=== PATIENT | male | born 1980 | race Caucasian/White ===

== ENCOUNTER 2019-10-01 12:37 | Outpatient (CLI) | payer MEDICAID, SELFPAY ==
[2019-10-01 13:24] VITALS: BP 106/68; PULSE 74; RESP 16; TEMP 37.3; O2SAT 99
--- NOTE | 2019-10-01 13:28 | PDOC.PAIN ---
Pain Clinic Procedure Note Procedure Note Procedure Note: PROCEDURE: TRIGGER POINT INJECTION PRE-OPERATIVE DIAGNOSIS: MYOFASCIAL PAIN POST-OPERATIVE DIAGNOSIS: SAME ABOVE Patient complains of persistent bilateral trapezius muscle pain. He was evaluated by Ms Fabiola APRN from pain clinic and referred for trigger point injections for symptomatic relief. Of note, patient has a history of cerebral palsy with spastic diplegia. Mr Avila is greeted by our RN who verified patient's name and . Patient is interviewed and medical record reviewed. There were no medical, pharmacological, radiographic or other structural contra-indications to attempting bialteral trapezius trigger point injections. Risks and potential sarina effects were discussed. The potential benefit of the procedure was reviewed with Mr Avila. His voiced concerns and questions were addressed. After obtaining informed consent, patient consent form signed. Standard time out procedure was performend. Patient was placed in seated position on the examination table. The entry point for entering/approaching bilateral trapezius muscle was marked. The skin was thoroughly prepared with chlorhexadine preparation. Next, using a 25 gauge 3.5'' needle, I entered the skin using medial to latral approach. Aspiration revealed no blood or other fluids. Next, point anesthesia was obtained by a 50:50 mixture of 1% lidocaine and 0.5% Bupivocaine. Multiple passes through the muscles were completed which resulted in muscle twitching. 5cc of 1% lidocaine and 5cc of 0.5% Bupivocaine was used. Follow up and discharge instructions were provided to patient at the end of procedure. patient tolerated procedure well. He reports pre-procedure pain of 6 out 10 and post-procedure pain of 4 of 10. I personally performed the entire procedure. Vania Zuniga MD Pain Management
[2019-10-01] MEDS: Bupivacaine 0.5% Pres-Free 10 ML VIAL (13:55)
== END 2019-10-01 12:57 ==
PROVIDERS: PCP Physician Assistant; Visit Provider Internal Medicine
DX: M79.18 Myalgia, other site (principal)
CPT/HCPCS: 20552

== ENCOUNTER 2019-11-14 00:54 | Outpatient (CLI) | payer MEDICAID, SELFPAY ==
--- NOTE | 2019-11-14 | DI.US_ITS ---
EXAM: CERVICAL MYOFASCIAL PAIN SYNDROME, TRAPEZIUS MUSCLE SPASM COMPARISON: No exams were available for comparison TECHNIQUE: Ultrasound performed using standard protocol. FINDINGS: Sonography was provided for Dr. Dillon during the performance of a bilateral trapezius trigger point i njection. Please refer to the procedure report for complete details. DATA REPOSITORY:
[2019-11-14 13:50] VITALS: BP 111/75; PULSE 83; RESP 17; TEMP 37; O2SAT 98
[2019-11-14] MEDS: methylPREDNISolone ACETATE 40 MG/ML VIAL IJ (14:31)
[2019-11-14] MEDS: Lidocaine 1% Pres-Free 5 ML VIAL (14:31)
[2019-11-14 14:33] VITALS: PULSE 81; O2SAT 99
--- NOTE | 2019-11-14 14:43 | PDOC.PAIN_ITS ---
Pain Clinic Procedure Note Procedure Note Procedure Note: ULTRASOUND GUIDED bilateral trapezius muscle trigger point INJECTIONS Pre-Procedural Evaluation: TIEN HENDERSON has been referred to the [facility] for an Ultrasound Guided [right/left/bilateral trapezius muslce trigger point i njections for a chief complaint of muscle pain. DX: Muscle pain Pre-procedure Pain Score: 6/10 Patient was interviewed and the medical record reviewed. There were no medical, pharmacologic, radiographic, or other structural contraindications to preforming an ultrasound guided injection. Risks and expected side effects as well as potential benefits of the procedure were reviewed. The patient consent form was signed and witnessed. Standard time-out procedure was performed. The use of direct ultrasound visualization of the needle (rather than a non- guided injection) was required to increase patient safety by excluding inadvertent intramuscular, intratendinous, or intraneural needle placement and minimizing bleeding by avoiding osteochondral or vascular injury from the needle. Additionally, the increased accuracy of placement may increase clinical effectiveness and will allow higher diagnostic specificity when evaluating effectiveness of this injection. Procedure Description: The patient was placed in the PRONE position and automated blood pressure cuff and pulse oximeter applied for monitoring during the procedure and recorded in the medical record. Pre-injection ultrasound scanning of the area of interest was performed using linear transducer, identifying relevant anatomy, landmarks, and neurovascular structures allowing for optimal needle path. The site was then prepared in the usual sterile fashion, using thorough Chlorhexadine preparation of the skin and sterile draping. The same ultrasound transducer was then passed into the sterile field using sterile probe cover and sterile ultrasound gel. The injection target was again visualized. Skin and subcutaneous tissues were anesthetized with 2 mL of 1% Lidocaine. A 21 guage Pajunk US needle inch needle was placed under live ultrasound guidance, using an in-plane approach, to the target area. After visualization of the needle tip at the target area, a mixture of 1 mL Depomedrol (40 mg/cc) and 4 mL 1% Lidocaine, totaling 5 mL of injectate was delivered after negative aspiration for blood. Ultrasound images were captured and stored for documentation purposes. Post-procedure Pain Score:0/10 Vital signs were stable throughout the procedure and were as recorded in the docflowsheet by the nursing staff. Follow up plans and appointments were discussed with the patient.Post procedure instruction was given as documented in nursing documentation and having met discharge criteria, they were discharged from the [facility]. COMMENTS: He will complete stretching of this area to help his pain.
== END 2019-11-14 01:14 ==
PROVIDERS: PCP Physician Assistant; Visit Provider Preventive Medicine Occupational Medicine
DX: M79.18 Myalgia, other site (principal)
CPT/HCPCS: 20552; 76942; J1030

== ENCOUNTER 2019-12-10 11:44 | Outpatient (REF) | payer MEDICAID, SELFPAY ==
[2019-12-10 19:01] LABS: Abs Immature Grans 0.02 10^3/uL (0.0-0.06); Absolute Basophil Count 0.04 10^3/uL (0.0-0.2); Absolute Neutrophil Count 4.06 10^3/uL (1.2-6.7); Basophils % 0.6; Eosinophils % 1.6; HCT 44.3 % (40.0-50.0); HGB 15.3 g/dL (13.5-17.5); Immature Grans % 0.3; Lymphocytes % 24.1; MCH 30.6 pg (27.0-33.0); MCHC 34.5 % (32.0-36.0); MCV 88.6 fL (80-95); MPV 9.9 fL (8.0-11.0); Neutrophils % 65.4; Platelet Count 239 10^3/uL (130-400); RDW 12.1 % (11.8-14.1); RDW-SD 39.5 fL; WBC 6.22 10^3/uL (4.4-10.8)
[2019-12-10 19:45] LABS: ALT 73 U/L (16-63); AST 31 U/L (15-37); Albumin 4.2 g/dL (3.4-5.0); Alkaline Phosphatase 240 U/L (46-116); Anion Gap 9.1 mmol/L (3-11); BUN 16 mg/dL (7-18); Bilirubin, Total 0.5 mg/dL (0.2-1.0); CO2 29.9 mmol/L (21.0-32.0); CREATININE 1.16 mg/dL (0.70-1.30); Calcium 9.3 mg/dL (8.5-10.1); Calculated LDL 141 mg/dL (<100); Chloride 104 mmol/L (98-107); Cholesterol 197 mg/dL (<200); Glucose 90 mg/dL (74-106); HDL Cholesterol 36 mg/dL (40-60); Potassium 4.5 mmol/L (3.5-5.1); Sodium 143 mmol/L (136-145); TSH (W/Ref FT4) 0.88 uIU/mL (0.36-3.74); Triglyceride 100 mg/dL (<150)
== END 2019-12-10 12:04 ==
LOC: NCHCN 11:44
PROVIDERS: PCP Physician Assistant; Visit Provider Physician Assistant
DX: Z00.00 Encounter for general adult medical examination without abnormal findings (principal); E78.5 Hyperlipidemia, unspecified
CPT/HCPCS: 80053; 80061; 84443; 85025

== ENCOUNTER 2023-08-31 16:30 | Outpatient (REF) | payer MEDICAID, SELFPAY ==
[2023-08-31 19:34] LABS: Absolute Basophil Count 0.03 10^3/uL (0.0-0.2); Absolute Eosinophil Count 0.13 10^3/uL (0.0-0.7); Absolute Lymphocyte Count 1.48 10^3/uL (1.2-3.4); Absolute Monocyte Count 0.37 10^3/uL (0.1-0.8); Absolute Neutrophil Count 2.81 10^3/uL (1.2-6.7); Basophils % 0.6; Eosinophils % 2.7; HCT 42.9 % (40.0-50.0); HGB 15.2 g/dL (13.5-17.5); Lymphocytes % 30.7; MCHC 35.4 % (32.0-36.0); MCV 88 fL (80-95); MPV 10.1 fL (8.0-11.0); Monocytes % 7.7; Neutrophils % 58.3; Platelet Count 226 10^3/uL (130-400); RDW 12.2 % (11.8-14.1); RDW-SD 39.5 fL; WBC 4.82 10^3/uL (4.4-10.8)
[2023-08-31 19:44] LABS: Iron 122 ug/dL (65-175); Total Iron Binding Capacity 271 ug/dL (250-450); Transferrin Sat 45 % (20-55)
[2023-08-31 19:56] LABS: ALT 35 U/L (16-63); AST 22 U/L (15-37); Albumin 4.2 g/dL (3.4-5.0); Alkaline Phosphatase 113 U/L (46-116); Anion Gap 7.5 mmol/L (3-11); BUN 16 mg/dL (7-18); Bilirubin, Total 0.7 mg/dL (0.2-1.0); CO2 27.5 mmol/L (21.0-32.0); Calcium 8.8 mg/dL (8.5-10.1); Calculated LDL 137 mg/dL (<100); Chloride 106 mmol/L (98-107); Cholesterol 201 mg/dL (<200); Estimated GFR 95.77 (mL/min/1.73m2); Ferritin 143 ng/mL (26-388); Glucose 97 mg/dL (74-106); HDL Cholesterol 41 mg/dL (40-60); Potassium 4.4 mmol/L (3.5-5.1); Sodium 141 mmol/L (136-145); Total Protein 7.8 g/dL (6.4-8.2); Triglyceride 119 mg/dL (<150)
[2023-09-01 19:38] LABS: HBs Antibody, Quant <3.1 mIU/mL (See Note); Hepatitis B Surface Ab Negative (See Note)
[2023-09-01 19:48] LABS: Hepatitis B Surface Ag Negative (Negative)
[2023-09-01 20:18] LABS: HIV-1/2 Ag & Ab Screen Negative (Negative)
[2023-09-01 20:22] LABS: Hepatitis C Ab w Rflx HCV PCR Negative (Negative)
== END 2023-08-31 16:31 | disposition home or self-care (01) ==
LOC: NCHCN 16:30
PROVIDERS: PCP Physician Assistant; Visit Provider Physician Assistant
DX: E78.5 Hyperlipidemia, unspecified (principal); R74.01 Elevation of levels of liver transaminase levels; K76.89 Other specified diseases of liver; Z11.3 Encounter for screening for infections with a predominantly sexual mode of transmission; Z11.4 Encounter for screening for human immunodeficiency virus [HIV]
CPT/HCPCS: 80053; 80061; 86706; 86803; 87340; 87389; 82728; 83540; 83550; 85025